=== PATIENT | male | born 1965 | race Caucasian/White ===

== ENCOUNTER 2018-09-30 06:08 | Day surgery (SDC) | payer OTHER ==
[~2018-09-30] VITALS: Ht 172.7 cm; Wt 85.1 kg
[~2018-09-30 06:08] MED LIST: ATEN-51 PO; LOSA50TA14 PO
[2018-09-30 07:29] VITALS: Ht 172.7 cm; Wt 85.1 kg
[2018-09-30 07:32] VITALS: BP 137/91; PULSE 82; RESP 18
[2018-09-30] MEDS ORDERED: OMEPRAZOLE (07:36)
[2018-09-30] MEDS ORDERED: AMLODIPINE (07:36)
[2018-09-30] MEDS ORDERED: LOSARTAN (07:36)
[2018-09-30] MEDS ORDERED: MIDAZOLAM 1 MG/ML 2 ML INJ ONE ×3 (09:02)
[2018-09-30] MEDS ORDERED: FENTAnyl 50 MCG/ML VIAL ONE (09:02)
[2018-09-30 09:06] VITALS: BP 144/88; PULSE 70; RESP 18
[2018-09-30 09:22] VITALS: BP 137/88; PULSE 69; RESP 18
== END 2018-09-30 16:25 | disposition home or self-care (01) ==
LOC: GIL 06:08
PROVIDERS: ATTEND Internal Medicine Gastroenterology
DX: Z12.11 Encounter for screening for malignant neoplasm of colon (principal); K64.8 Other hemorrhoids; D12.5 Benign neoplasm of sigmoid colon; K21.9 Gastro-esophageal reflux disease without esophagitis; I10 Essential (primary) hypertension
CPT/HCPCS: 43239; 45380; 88305; J2250; J3010